=== PATIENT | male | born 2000 | race Caucasian/White ===

== ENCOUNTER 2023-03-14 18:02 | Emergency (ER) | payer MEDICAID ==
[~2023-03-14] VITALS: Ht 175.3 cm; Wt 70.3 kg
[2023-03-14 18:43] VITALS: PULSE 101; RESP 16; TEMP 98.2; O2SAT 97
[2023-03-14 19:00] VITALS: O2SAT 97
[2023-03-14] MEDS ORDERED: FAMO-92 PO (19:32)
[2023-03-14] MEDS ORDERED: OMEP20EC11 PO (19:32)
== END 2023-03-14 19:41 | disposition home or self-care (01) ==
LOC: MED 18:02
DX: K29.70 Gastritis, unspecified, without bleeding (principal); Z79.899 Other long term (current) drug therapy
CPT/HCPCS: 99283